=== PATIENT | female | born 1960 | race American Indian/Alaskan Native ===

== ENCOUNTER 2018-03-27 21:15 | Emergency (ER) | payer BC, OTHER ==
--- NOTE | 2018-03-27 21:22 | EDM.PDOC ---
ED HPI GENERAL MEDICAL PROBLEM - General Stated Complaint: DEHYDRATED Time Seen by Provider: 03/27/18 21:17 - History of Present Illness INITIAL COMMENTS - FREE TEXT/NARRATIVE: HISTORY AND PHYSICAL: History of present illness: Patient 57-year-old female presents with concern of poor oral intake and dehydration she states was recently exposed to norovirus. Denies fever chills she had some abdominal cramping denies localized pain denies vaginal discharge or irregular bleeding or urinary symptoms Review of systems: As per history of present illness and below otherwise all systems reviewed and negative. Past medical history: As per history of present illness and as reviewed below otherwise noncontributory. Surgical history: As per history of present illness and as reviewed below otherwise noncontributory. Social history: No reported history of drug or alcohol abuse. Family history: As per history of present illness and as reviewed below otherwise noncontributory. Physical exam: HEENT: Atraumatic, normocephalic, pupils reactive, negative for conjunctival pallor or scleral icterus, mucous membranes dry, throat clear, neck supple, nontender, trachea midline. Lungs: Clear to auscultation, breath sounds equal bilaterally, chest nontender. Heart: S1S2, regular, negative for clicks, rubs, or JVD. Abdomen: Soft, nondistended, no localized tenderness. Negative for masses or hepatosplenomegaly. Negative for costovertebral tenderness. Pelvis: Stable nontender. Genitourinary: Deferred. Rectal: Deferred. Extremities: Atraumatic, negative for cords or calf pain. Neurovascular unremarkable. Neuro: Awake, alert, oriented. Cranial nerves II through XII unremarkable. Cerebellum unremarkable. Motor and sensory unremarkable throughout. Exam nonfocal. Diagnostics: CBC CMP lipase UA Therapeutics: Normal saline 1 L bolus Zofran 4 mg IV Impression: #1 dehydration #2 viral illness Definitive disposition and diagnosis as appropriate pending reevaluation and review of above. - Related Data Allergies Allergy/AdvReac Type Severity Reaction Status Date / Time codeine Allergy Other Verified 08/22/16 07:35 lidocaine Allergy Other Verified 08/22/16 07:35 Sulfa (Sulfonamide Allergy Hives Verified 08/22/16 07:35 Antibiotics) venlafaxine HCl Allergy Other Verified 08/22/16 07:35 [From Effexor] Home Meds: Home Meds Dicyclomine HCl [Bentyl] 10 mg PO ASDIRECTED 04/05/15 [History] Hyoscyamine [Levsin] 0.125 mg PO ASDIRECTED PRN 04/05/15 [History] Ibuprofen 2 tab PO ASDIRECTED PRN 04/05/15 [History] Lisinopril 5 mg PO DAILY 04/05/15 [History] hydrOXYzine Pamoate [Hydroxyzine Pamoate] 25 mg PO PRN 04/07/15 [History] Folic Acid 0.4 mg PO DAILY 02/05/16 [History] Magnesium 250 mg PO DAILY 02/05/16 [History] Potassium Gluconate 90 mg PO DAILY 02/05/16 [History] Ranitidine HCl [Ranitidine] 300 mg PO BID #60 tablet 08/22/16 [Rx] Past Medical History HEENT History: Reports: None Cardiovascular History: Reports: Hypertension Respiratory History: Reports: None Gastrointestinal History: Reports: Inflammatory Bowel Disease, Other (See Below) Other Gastrointestinal History: ventral hernia Genitourinary History: Reports: None JIGMAN History: Reports: None, Other (See Below) Other OB/BYN History: currently on menses Musculoskeletal History: Reports: None Neurological History: Reports: None Psychiatric History: Reports: None Endocrine/Metabolic History: Reports: Other (See Below) Other Endocrine/Metabolic History: hypoglycemia Hematologic History: Reports: None Immunologic History: Reports: None Oncologic (Cancer) History: Reports: None Dermatologic History: Reports: None - Past Surgical History Head Surgeries/Procedures: Reports: None Other GI Surgeries/Procedures: 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 ED EXAM, GENERAL - Physical Exam Exam: See Below (dictation) Course - Vital Signs Last Recorded V/S: Last Vital Signs Temp 36.8 C 03/27/18 21:17 Pulse 86 03/27/18 21:17 Resp 18 03/27/18 21:17 BP 114/87 03/27/18 21:17 Pulse Ox 97 03/27/18 21:17 - Orders/Labs/Meds Labs: Laboratory Tests 03/27/18 03/27/18 Range/Units 21:37 21:37 WBC 7.99 (4.0-11.0) K/uL RBC 5.25 (4.30-5.90) M/uL Hgb 16.8 H (12.0-16.0) g/dL Hct 47.4 H (36.0-46.0) % MCV 90.3 (80.0-98.0) fL MCH 32.0 (27.0-32.0) pg MCHC 35.4 (31.0-37.0) g/dL RDW Std Deviation 44.5 (28.0-62.0) fl RDW Coeff of Marcello 14 (11.0-15.0) % Plt Count 276 (150-400) K/uL MPV 9.30 (7.40-12.00) fL Neut % (Auto) 80.6 H (48.0-80.0) % Lymph % (Auto) 13.0 L (16.0-40.0) % [place] % (Auto) 4.6 (0.0-15.0) % Eos % (Auto) 1.5 (0.0-7.0) % Baso % (Auto) 0.3 (0.0-1.5) % Neut # (Auto) 6.4 H (1.4-5.7) K/uL Lymph # (Auto) 1.0 (0.6-2.4) K/uL [place] # (Auto) 0.4 (0.0-0.8) K/uL Eos # (Auto) 0.1 (0.0-0.7) K/uL Baso # (Auto) 0.0 (0.0-0.1) K/uL Nucleated RBC % 0.0 /100WBC Nucleated RBCs # 0 K/uL Sodium 139 (136-145) mmol/L Potassium 3.3 L (3.5-5.1) mmol/L Chloride 103 (98-107) mmol/L Carbon Dioxide 24.7 (21.0-32.0) mmol/L BUN 9 (7.0-18.0) mg/dL Creatinine 1.0 (0.6-1.0) mg/dL Est Cr Clr Drug Dosing TNP Estimated GFR (MDRD) 57.6 ml/min Glucose 115 H (74-106) mg/dL Calcium 9.5 (8.5-10.1) mg/dL Total Bilirubin 0.3 (0.2-1.0) mg/dL AST 22 (15-37) IU/L ALT 21 (14-63) IU/L Alkaline Phosphatase 64 (46-116) U/L Total Protein 8.0 (6.4-8.2) g/dL Albumin 4.3 (3.4-5.0) g/dL Globulin 3.7 H (2.0-3.5) g/dL Albumin/Globulin Ratio 1.2 L (1.3-2.8) Lipase 110 (73-393) U/L Meds: Medications Discontinued Medications Generic Name Dose Route Start Last Admin Trade Name Freq PRN Reason Stop Dose Admin Sodium Chloride 1,000 mls @ 999 mls/hr 03/27/18 21:23 03/27/18 21:51 Normal Saline IV 03/27/18 22:23 999 mls/hr .Bolus ONE Administration Ondansetron HCl 4 mg 03/27/18 21:23 03/27/18 21:51 Zofran IVPUSH 03/27/18 21:24 4 mg ONETIME ONE Administration Departure - Departure Time of Disposition: 22:36 Disposition: Home, Self-Care 01 Condition: Good Clinical Impression: Dehydration - Discharge Information Additional Instructions: The following information is given to patients seen in the emergency department who are being discharged to home. This information is to outline your options for follow-up care. We provide all patients seen in our emergency department with a follow-up referral. The need for follow-up, as well as the timing and circumstances, are variable depending upon the specifics of your emergency department visit. If you don't have a primary care physician on staff, we will provide you with a referral. We always advise you to contact your personal physician following an emergency department visit to inform them of the circumstance of the visit and for follow-up with them and/or the need for any referrals to a consulting specialist. The emergency department will also refer you to a specialist when appropriate. This referral assures that you have the opportunity for followup care with a specialist. All of these measure are taken in an effort to provide you with optimal care, which includes your followup. Under all circumstances we always encourage you to contact your private physician who remains a resource for coordinating your care. When calling for followup care, please make the office aware that this follow-up is from your recent emergency room visit. If for any reason you are refused follow-up, please contact the [facility] emergency department at and asked to speak to the emergency department charge nurse. Continue current medications push fluids clear liquid as directed avoid dairy 72 hours follow-up private medical doctor in 1-2 days and return as needed as discussed
[2018-03-27] MEDS ORDERED: Sodium Chloride 0.9% 1,000 ML IV ONE (21:23)
[2018-03-27] MEDS ORDERED: Ondansetron 4 MG/2 ML SDV IVPUSH ONE (21:23)
[2018-03-27 22:08] LABS: CHLORIDE,CL 103 mmol/L (98-107); SODIUM,NA 139 mmol/L (136-145)
[2018-03-27 22:36] VITALS: BP 114/87
== END 2018-03-27 22:53 | disposition home or self-care (01) ==
LOC: MW.ED 21:15
DX: E86.0 Dehydration (principal); B34.9 Viral infection, unspecified; I10 Essential (primary) hypertension; Z88.5 Allergy status to narcotic agent; Z88.2 Allergy status to sulfonamides; Z88.8 Allergy status to other drugs, medicaments and biological substances; Z79.899 Other long term (current) drug therapy
CPT/HCPCS: 36415; 80053; 83690; 85025; 96361; 96374; 99284; J2405; J7040

== ENCOUNTER 2018-06-18 14:03 | Emergency (ER) | payer BC, OTHER ==
[2018-06-18] MEDS ORDERED: Sodium Chloride 0.9% 10 ML Syringe FLUSH PRN (14:09)
[2018-06-18] MEDS ORDERED: Sodium Chloride 0.9% 1,000 ML IV ONE (14:09)
[2018-06-18] MEDS ORDERED: Sodium Chloride 0.9% 2.5 ML Syringe FLUSH PRN (14:09)
--- NOTE | 2018-06-18 14:10 | EDM.PDOC ---
ED HPI GENERAL MEDICAL PROBLEM - General Chief Complaint: Chest Pain Stated Complaint: CHEST PAIN Time Seen by Provider: 06/18/18 14:22 Source of Information: Reports: Patient History Limitations: Reports: No Limitations - History of Present Illness INITIAL COMMENTS - FREE TEXT/NARRATIVE: HISTORY AND PHYSICAL: History of present illness: Patient is a 57-year-old female here with complaint of chest pain. She states it started about 1.5 hours ago. She reports the pain is left sided, she had two episodes of really sharp pain that lasted less than a minute. She states she no longer has any pain right now. She notes that the pain radiated to her left shoulder. She denies any diaphoresis or shortness of breath. She reports feeling nausea and having diarrhea which she attributes to her colitis. She denies any vomiting. Past medical history of hypertension and type 2 diabetes. She smokes 1-1.5 ppd x 20+ years. Review of systems: As per history of present illness and below otherwise all systems reviewed and negative. Past medical history: As per history of present illness and as reviewed below otherwise noncontributory. Surgical history: As per history of present illness and as reviewed below otherwise noncontributory. Social history: No reported history of drug or alcohol abuse. Family history: As per history of present illness and as reviewed below otherwise noncontributory. Physical exam: General: patient sitting comfortably in no acute distress HEENT: Atraumatic, normocephalic, pupils reactive, negative for conjunctival pallor or scleral icterus, mucous membranes moist, throat clear, neck supple, nontender, trachea midline. Lungs: Clear to auscultation, breath sounds equal bilaterally, chest nontender. Heart: S1S2, regular, negative for clicks, rubs, or JVD. Abdomen: Soft, nondistended, nontender. Negative for masses or hepatosplenomegaly. Negative for costovertebral tenderness. Pelvis: Stable nontender. Genitourinary: Deferred. Rectal: Deferred. Extremities: Atraumatic, negative for cords or calf pain. Neurovascular unremarkable. Neuro: Awake, alert, oriented. Cranial nerves II through XII unremarkable. Cerebellum unremarkable. Motor and sensory unremarkable throughout. Exam nonfocal. Notes: Discussed with patient my strong recommendations to admit to observation on telemetry and serial troponin. Patient declines admission at this time. Diagnostics: CBC, CMP, Troponin, UA, urine hcg, lipase EKG, CXR Therapeutics: 1L Normal Saline IV Impression: Chest pain Plan: 1. Follow up with primary care provider 2. Return to ED as needed as discussed Definitive disposition and diagnosis as appropriate pending reevaluation and review of above. - Related Data Allergies Allergy/AdvReac Type Severity Reaction Status Date / Time codeine Allergy Other Verified 06/18/18 14:10 lidocaine Allergy Other Verified 06/18/18 14:10 Sulfa (Sulfonamide Allergy Hives Verified 06/18/18 14:10 Antibiotics) venlafaxine HCl Allergy Other Verified 06/18/18 14:10 [From Effexor] Home Meds: Home Meds Dicyclomine HCl [Bentyl] 10 mg PO ASDIRECTED 04/05/15 [History] Hyoscyamine [Levsin] 0.125 mg PO ASDIRECTED PRN 04/05/15 [History] Ibuprofen 2 tab PO ASDIRECTED PRN 04/05/15 [History] Lisinopril 5 mg PO DAILY 04/05/15 [History] hydrOXYzine Pamoate [Hydroxyzine Pamoate] 25 mg PO PRN 04/07/15 [History] Folic Acid 0.4 mg PO DAILY 02/05/16 [History] Magnesium 250 mg PO DAILY 02/05/16 [History] Potassium Gluconate 90 mg PO DAILY 02/05/16 [History] Ranitidine HCl [Ranitidine] 300 mg PO BID #60 tablet 08/22/16 [Rx] Past Medical History HEENT History: Reports: None Cardiovascular History: Reports: Hypertension Respiratory History: Reports: None Gastrointestinal History: Reports: Inflammatory Bowel Disease, Other (See Below) Other Gastrointestinal History: ventral hernia Genitourinary History: Reports: None MATERIALS MANAGEMENT CLERK History: Reports: None, Other (See Below) Other MATERIALS MANAGEMENT CLERK History: currently on menses Musculoskeletal History: Reports: None Neurological History: Reports: None Psychiatric History: Reports: None Endocrine/Metabolic History: Reports: Other (See Below) Other Endocrine/Metabolic History: hypoglycemia Hematologic History: Reports: None Immunologic History: Reports: None Oncologic (Cancer) History: Reports: None Dermatologic History: Reports: None - Infectious Disease History Infectious Disease History: Reports: None - Past Surgical History Head Surgeries/Procedures: Reports: None Other GI Surgeries/Procedures: 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 ED EXAM, GENERAL - Physical Exam Exam: See Below (see dictation) Course - Vital Signs Last Recorded V/S: Last Vital Signs Temp 36.3 C 06/18/18 14:07 Pulse 62 06/18/18 15:03 Resp 18 06/18/18 15:03 BP 139/78 06/18/18 15:03 Pulse Ox 97 06/18/18 15:03 - Orders/Labs/Meds Orders: Active Orders 24 hr Category Date Time Status EKG Documentation Completion [RC] STAT Care 06/18/18 14:09 Active Pulse Oximetry [RC] ASDIRECTED Care 06/18/18 14:09 Active HCG QUALITATIVE,URINE [URCHEM] Stat Lab 06/18/18 14:15 Ordered UA W/MICROSCOPIC [URIN] Stat Lab 06/18/18 14:15 Ordered Sodium Chloride 0.9% [Saline Flush] Med 06/18/18 14:09 Active 10 ml FLUSH ASDIRECTED PRN Sodium Chloride 0.9% [Saline Flush] Med 06/18/18 14:09 Active 2.5 ml FLUSH ASDIRECTED PRN Saline Lock Insert [OM.PC] Stat Oth 06/18/18 14:09 Ordered Medication Orders Sodium Chloride (Saline Flush) 10 ml FLUSH ASDIRECTED PRN PRN Reason: Keep Vein Open Last Admin: 06/18/18 14:26 Dose: 10 ml Sodium Chloride (Saline Flush) 2.5 ml FLUSH ASDIRECTED PRN PRN Reason: Keep Vein Open Last Admin: 06/18/18 14:26 Dose: 2.5 ml Labs: Laboratory Tests 06/18/18 06/18/18 06/18/18 Range/Units 14:00 14:00 14:00 WBC 8.84 (4.0-11.0) K/uL RBC 4.71 (4.30-5.90) M/uL Hgb 14.9 (12.0-16.0) g/dL Hct 42.8 (36.0-46.0) % MCV 90.9 (80.0-98.0) fL MCH 31.6 (27.0-32.0) pg MCHC 34.8 (31.0-37.0) g/dL RDW Std Deviation 45.9 (28.0-62.0) fl RDW Coeff of Marcello 14 (11.0-15.0) % Plt Count 256 (150-400) K/uL MPV 9.30 (7.40-12.00) fL Neut % (Auto) 65.1 (48.0-80.0) % Lymph % (Auto) 27.5 (16.0-40.0) % [place] % (Auto) 6.1 (0.0-15.0) % Eos % (Auto) 1.0 (0.0-7.0) % Baso % (Auto) 0.3 (0.0-1.5) % Neut # (Auto) 5.8 H (1.4-5.7) K/uL Lymph # (Auto) 2.4 (0.6-2.4) K/uL [place] # (Auto) 0.5 (0.0-0.8) K/uL Eos # (Auto) 0.1 (0.0-0.7) K/uL Baso # (Auto) 0.0 (0.0-0.1) K/uL Nucleated RBC % 0.0 /100WBC Nucleated RBCs # 0 K/uL INR 0.92 Sodium 134 L (136-145) mmol/L Potassium 3.8 (3.5-5.1) mmol/L Chloride 99 (98-107) mmol/L Carbon Dioxide 26.1 (21.0-32.0) mmol/L BUN 13 (7.0-18.0) mg/dL Creatinine 0.8 (0.6-1.0) mg/dL Est Cr Clr Drug Dosing 65.73 mL/min Estimated GFR (MDRD) > 60.0 ml/min Glucose 87 (74-106) mg/dL Calcium 9.1 (8.5-10.1) mg/dL Total Bilirubin 0.2 (0.2-1.0) mg/dL AST 27 (15-37) IU/L ALT 28 (14-63) IU/L Alkaline Phosphatase 67 (46-116) U/L Troponin I < 0.050 (0.000-0.056) ng/mL Total Protein 7.3 (6.4-8.2) g/dL Albumin 3.8 (3.4-5.0) g/dL Globulin 3.5 (2.0-3.5) g/dL Albumin/Globulin Ratio 1.1 L (1.3-2.8) Lipase 178 (73-393) U/L Urine Color Urine Appearance Urine pH (5.0-8.0) Ur Specific [place] (1.001-1.035) Urine Protein (NEGATIVE) mg/dL Urine Glucose (UA) (NEGATIVE) mg/dL Urine Ketones (NEGATIVE) mg/dL Urine Occult Blood (NEGATIVE) Urine Nitrite (NEGATIVE) Urine Bilirubin (NEGATIVE) Urine Urobilinogen (<2.0) EU/dL Ur Leukocyte Esterase (NEGATIVE) Urine RBC (0-2/HPF) Urine WBC (0-5/HPF) Ur Epithelial Cells (NONE-FEW) Urine Bacteria (NEGATIVE) Urine HCG, Qual (NEGATIVE) 06/18/18 06/18/18 Range/Units 14:15 14:15 WBC (4.0-11.0) K/uL RBC (4.30-5.90) M/uL Hgb (12.0-16.0) g/dL Hct (36.0-46.0) % MCV (80.0-98.0) fL MCH (27.0-32.0) pg MCHC (31.0-37.0) g/dL RDW Std Deviation (28.0-62.0) fl RDW Coeff of Marcello (11.0-15.0) % Plt Count (150-400) K/uL MPV (7.40-12.00) fL Neut % (Auto) (48.0-80.0) % Lymph % (Auto) (16.0-40.0) % [place] % (Auto) (0.0-15.0) % Eos % (Auto) (0.0-7.0) % Baso % (Auto) (0.0-1.5) % Neut # (Auto) (1.4-5.7) K/uL Lymph # (Auto) (0.6-2.4) K/uL [place] # (Auto) (0.0-0.8) K/uL Eos # (Auto) (0.0-0.7) K/uL Baso # (Auto) (0.0-0.1) K/uL Nucleated RBC % /100WBC Nucleated RBCs # K/uL INR Sodium (136-145) mmol/L Potassium (3.5-5.1) mmol/L Chloride (98-107) mmol/L Carbon Dioxide (21.0-32.0) mmol/L BUN (7.0-18.0) mg/dL Creatinine (0.6-1.0) mg/dL Est Cr Clr Drug Dosing mL/min Estimated GFR (MDRD) ml/min Glucose (74-106) mg/dL Calcium (8.5-10.1) mg/dL Total Bilirubin (0.2-1.0) mg/dL AST (15-37) IU/L ALT (14-63) IU/L Alkaline Phosphatase (46-116) U/L Troponin I (0.000-0.056) ng/mL Total Protein (6.4-8.2) g/dL Albumin (3.4-5.0) g/dL Globulin (2.0-3.5) g/dL Albumin/Globulin Ratio (1.3-2.8) Lipase (73-393) U/L Urine Color YELLOW Urine Appearance CLEAR Urine pH 6.0 (5.0-8.0) Ur Specific [place] <= 1.005 (1.001-1.035) Urine Protein NEGATIVE (NEGATIVE) mg/dL Urine Glucose (UA) NEGATIVE (NEGATIVE) mg/dL Urine Ketones NEGATIVE (NEGATIVE) mg/dL Urine Occult Blood TRACE-INTACT (NEGATIVE) Urine Nitrite NEGATIVE (NEGATIVE) Urine Bilirubin NEGATIVE (NEGATIVE) Urine Urobilinogen 0.2 (<2.0) EU/dL Ur Leukocyte Esterase NEGATIVE (NEGATIVE) Urine RBC 0-1 (0-2/HPF) Urine WBC 0-1 (0-5/HPF) Ur Epithelial Cells RARE (NONE-FEW) Urine Bacteria RARE (NEGATIVE) Urine HCG, Qual NEGATIVE (NEGATIVE) Meds: Medications Generic Name Dose Route Start Last Admin Trade Name Freq PRN Reason Stop Dose Admin Sodium Chloride 10 ml 06/18/18 14:09 06/18/18 14:26 Saline Flush FLUSH 10 ml ASDIRECTED PRN Administration Keep Vein Open Sodium Chloride 2.5 ml 06/18/18 14:09 06/18/18 14:26 Saline Flush FLUSH 2.5 ml ASDIRECTED PRN Administration Keep Vein Open Discontinued Medications Generic Name Dose Route Start Last Admin Trade Name Kush PRN Reason Stop Dose Admin Sodium Chloride 1,000 mls @ 999 mls/hr 06/18/18 14:09 06/18/18 14:26 Normal Saline IV 06/18/18 15:09 999 mls/hr BOLUS ONE Administration Departure - Departure Time of Disposition: 15:26 Disposition: Home, Self-Care 01 Condition: Good Clinical Impression: Chest pain Forms: ED Department Discharge Additional Instructions: The following information is given to patients seen in the emergency department who are being discharged to home. This information is to outline your options for follow-up care. We provide all patients seen in our emergency department with a follow-up referral. The need for follow-up, as well as the timing and circumstances, are variable depending upon the specifics of your emergency department visit. If you don't have a primary care physician on staff, we will provide you with a referral. We always advise you to contact your personal physician following an emergency department visit to inform them of the circumstance of the visit and for follow-up with them and/or the need for any referrals to a consulting specialist. The emergency department will also refer you to a specialist when appropriate. This referral assures that you have the opportunity for follow-up care with a specialist. All of these measure are taken in an effort to provide you with optimal care, which includes your follow-up. Under all circumstances we always encourage you to contact your private physician who remains a resource for coordinating your care. When calling for follow-up care, please make the office aware that this follow-up is from your recent emergency room visit. If for any reason you are refused follow-up, please contact the [facility] Emergency Department at and asked to speak to the emergency department charge nurse. [facility] [address] [place] [id number] [address] 1. Follow up with primary care provider 2. Return to ED as needed as discussed - My Orders Last 24 Hours: My Active Orders 06/18/18 14:09 EKG Documentation Completion [RC] STAT Pulse Oximetry [RC] ASDIRECTED Sodium Chloride 0.9% [Saline Flush] 10 ml FLUSH ASDIRECTED PRN Sodium Chloride 0.9% [Saline Flush] 2.5 ml FLUSH ASDIRECTED PRN Saline Lock Insert [OM.PC] Stat 06/18/18 14:15 HCG QUALITATIVE,URINE [URCHEM] Stat UA W/MICROSCOPIC [URIN] Stat - Assessment/Plan Last 24 Hours: My Active Orders 06/18/18 14:09 EKG Documentation Completion [RC] STAT Pulse Oximetry [RC] ASDIRECTED Sodium Chloride 0.9% [Saline Flush] 10 ml FLUSH ASDIRECTED PRN Sodium Chloride 0.9% [Saline Flush] 2.5 ml FLUSH ASDIRECTED PRN Saline Lock Insert [OM.PC] Stat 06/18/18 14:15 HCG QUALITATIVE,URINE [URCHEM] Stat UA W/MICROSCOPIC [URIN] Stat
[2018-06-18 14:41] LABS: CHLORIDE,CL 99 mmol/L (98-107); SODIUM,NA 134 mmol/L (136-145)
--- NOTE | 2018-06-18 14:57 | CR ---
EXAMINATION: Portable chest radiograph. HISTORY: Chest pain. FINDINGS: The trachea is midline. The cardiomediastinal silhouette is within normal limits. No pulmonary infilt rates, effusions or pneumothorax. Osseous structures appear unremarkable. IMPRESSION: No acute cardiopulmonary process.
[2018-06-18 17:25] VITALS: BP 138/83
== END 2018-06-18 15:39 | disposition home or self-care (01) ==
LOC: MW.ED 14:03
DX: R07.9 Chest pain, unspecified (principal)
CPT/HCPCS: 36415; 71045; 80053; 81001; 81025; 83690; 84484; 85025; 85610; 93005; 96360; 99285; J7040; 99284

== ENCOUNTER 2019-07-09 09:26 | Emergency (ER) | payer OTHER ==
--- NOTE | 2019-07-09 09:40 | EDM.PDOC ---
ED HPI GENERAL MEDICAL PROBLEM - General Chief Complaint: Upper Extremity Injury/Pain Stated Complaint: INJURED LT ARM Time Seen by Provider: 07/09/19 09:38 Source of Information: Reports: Patient History Limitations: Reports: No Limitations - History of Present Illness INITIAL COMMENTS - FREE TEXT/NARRATIVE: HISTORY AND PHYSICAL: History of present illness: Review of systems: As per history of present illness and below otherwise all systems reviewed and negative. Past medical history: As per history of present illness and as reviewed below otherwise noncontributory. Surgical history: As per history of present illness and as reviewed below otherwise noncontributory. Social history: See social history for further information Family history: As per history of present illness and as reviewed below otherwise noncontributory. Physical exam: General: HEENT: Atraumatic, normocephalic, pupils equal and reactive bilaterally, negative for conjunctival pallor or scleral icterus, mucous membranes moist, TMs normal bilaterally, throat clear, neck supple, nontender, trachea midline. No drooling or trismus noted. No meningeal signs. No hot potato voice noted. Lungs: Clear to auscultation, breath sounds equal bilaterally, chest nontender. Heart: S1S2, regular rate and rhythm without overt murmur Abdomen: Soft, nondistended, nontender. Negative for masses or hepatosplenomegaly. Negative for costovertebral tenderness. Pelvis: Stable nontender. Genitourinary: Deferred. Rectal: Deferred. Skin: Intact, warm, dry. No lesions or rashes noted. Extremities: Atraumatic, moves all extremities per self without difficulty or deficits, negative for cords or calf pain. Neurovascular unremarkable. Neuro: Awake, alert, oriented. Cranial nerves II through XII unremarkable. Cerebellum unremarkable. Motor and sensory unremarkable throughout. Exam nonfocal. Notes: Supportive care measures were reviewed and discussed. Voices understanding and is agreeable to plan of care. Denies any further questions or concerns at this time. Diagnostics: Therapeutics: Prescription: Impression: Plan: Definitive disposition and diagnosis as appropriate pending reevaluation and review of above. - Related Data Allergies Allergy/AdvReac Type Severity Reaction Status Date / Time codeine Allergy Other Verified 09/28/18 08:55 lidocaine Allergy Other Verified 09/28/18 08:55 Sulfa (Sulfonamide Allergy Hives Verified 09/28/18 08:55 Antibiotics) venlafaxine HCl Allergy Other Verified 09/28/18 08:55 [From Effexor] Home Meds: Home Meds Dicyclomine HCl [Bentyl] 10 mg PO ASDIRECTED 04/05/15 [History] Hyoscyamine [Levsin] 0.125 mg PO ASDIRECTED PRN 04/05/15 [History] Ibuprofen 2 tab PO ASDIRECTED PRN 04/05/15 [History] Lisinopril 5 mg PO DAILY 04/05/15 [History] Magnesium 250 mg PO DAILY 02/05/16 [History] Potassium Gluconate 90 mg PO DAILY 02/05/16 [History] Aspirin [Halfprin] 81 mg PO DAILY #30 tab.ec 09/28/18 [Rx] Nitroglycerin 0.4 mg SL Q5M PRN #30 tab.subl 09/28/18 [Rx] Past Medical History HEENT History: Reports: None Cardiovascular History: Reports: Hypertension Respiratory History: Reports: None. Denies: Asthma, COPD Gastrointestinal History: Reports: Other (See Below) Other Gastrointestinal History: ventral hernia. chronic diarrhea Genitourinary History: Reports: None. Denies: Chronic Renal Insuffiency SEASONAL CLERK History: Reports: None Other SEASONAL CLERK History: currently on menses Musculoskeletal History: Reports: Other (See Below) Other Musculoskeletal History: left knee issues, maniscus tears, needs surgery Neurological History: Reports: None. Denies: CVA, MS, Parkinson's Psychiatric History: Reports: None Endocrine/Metabolic History: Reports: Other (See Below). Denies: Diabetes, Type I, Diabetes, Type II Other Endocrine/Metabolic History: hypoglycemia Hematologic History: Reports: None. Denies: Anticoagulation Therapy Immunologic History: Reports: None. 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
--- NOTE | 2019-07-09 09:48 | EDM.PDOC ---
ED HPI GENERAL MEDICAL PROBLEM - General Chief Complaint: Upper Extremity Injury/Pain Stated Complaint: INJURED LT ARM Time Seen by Provider: 07/09/19 09:38 - History of Present Illness INITIAL COMMENTS - FREE TEXT/NARRATIVE: HISTORY AND PHYSICAL: History of present illness: Patient 58 show female presents with a concern of medical screening exam for a left forearm injury that occurred when it was hit by a door while at work she sustained a minor abrasion contusion and is here at the request of her employer. There is no other trauma or concern Review of systems: As per history of present illness and below otherwise all systems reviewed and negative. Past medical history: As per history of present illness and as reviewed below otherwise noncontributory. Surgical history: As per history of present illness and as reviewed below otherwise noncontributory. Social history: No reported history of drug or alcohol abuse. Family history: As per history of present illness and as reviewed below otherwise noncontributory. Physical exam: HEENT: Atraumatic, normocephalic, pupils reactive, negative for conjunctival pallor or scleral icterus, mucous membranes moist, throat clear, neck supple, nontender, trachea midline. Lungs: Clear to auscultation, breath sounds equal bilaterally, chest nontender. Heart: S1S2, regular, negative for clicks, rubs, or JVD. Abdomen: Soft, nondistended, nontender. Negative for masses or hepatosplenomegaly. Negative for costovertebral tenderness. Pelvis: Stable nontender. Genitourinary: Deferred. Rectal: Deferred. Extremities: Left forearm has a small abrasion into minor areas of ecchymosis noted no gross deformity no bony tenderness EMS and neurovascular exam is unremarkable. Neuro: Awake, alert, oriented. Cranial nerves II through XII unremarkable. Cerebellum unremarkable. Motor and sensory unremarkable throughout. Exam nonfocal. Diagnostics: X-ray left forearm Therapeutics: None Impression: #1 acute left forearm injury ( blunt force trauma) Definitive disposition and diagnosis as appropriate pending reevaluation and review of above. - Related Data Allergies Allergy/AdvReac Type Severity Reaction Status Date / Time codeine Allergy Other Verified 09/28/18 08:55 lidocaine Allergy Other Verified 09/28/18 08:55 Sulfa (Sulfonamide Allergy Hives Verified 09/28/18 08:55 Antibiotics) venlafaxine HCl Allergy Other Verified 09/28/18 08:55 [From Effexor] Home Meds: Home Meds Dicyclomine HCl [Bentyl] 10 mg PO ASDIRECTED 04/05/15 [History] Hyoscyamine [Levsin] 0.125 mg PO ASDIRECTED PRN 04/05/15 [History] Ibuprofen 2 tab PO ASDIRECTED PRN 04/05/15 [History] Lisinopril 5 mg PO DAILY 04/05/15 [History] Magnesium 250 mg PO DAILY 02/05/16 [History] Potassium Gluconate 90 mg PO DAILY 02/05/16 [History] Aspirin [Halfprin] 81 mg PO DAILY #30 tab.ec 09/28/18 [Rx] Nitroglycerin 0.4 mg SL Q5M PRN #30 tab.subl 09/28/18 [Rx] Past Medical History HEENT History: Reports: None Cardiovascular History: Reports: Hypertension Respiratory History: Reports: None. Denies: Asthma, COPD Gastrointestinal History: Reports: Other (See Below) Other Gastrointestinal History: ventral hernia. chronic diarrhea Genitourinary History: Reports: None. Denies: Chronic Renal Insuffiency CHILDREN'S TUTOR History: Reports: None Other CHILDREN'S TUTOR History: currently on menses Musculoskeletal History: Reports: Other (See Below) Other Musculoskeletal History: left knee issues, maniscus tears, needs surgery Neurological History: Reports: None. Denies: CVA, MS, Parkinson's Psychiatric History: Reports: None Endocrine/Metabolic History: Reports: Other (See Below). Denies: Diabetes, Type I, Diabetes, Type II Other Endocrine/Metabolic History: hypoglycemia Hematologic History: Reports: None. Denies: Anticoagulation Therapy Immunologic History: Reports: None. 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 ED EXAM, GENERAL - Physical Exam Exam: See Below (See dictation) Course - Orders/Labs/Meds Orders: Active Orders 24 hr Category Date Time Status Forearm 2V Lt [CR] Stat Exams 07/09/19 09:43 Ordered Departure - Departure Time of Disposition: 09:47 Disposition: Home, Self-Care 01 Condition: Good Clinical Impression: Forearm injury - Discharge Information Referrals: PCP,Unknown [Primary Care Provider] - Forms: ED Department Discharge Additional Instructions: The following information is given to patients seen in the emergency department who are being discharged to home. This information is to outline your options for follow-up care. We provide all patients seen in our emergency department with a follow-up referral. The need for follow-up, as well as the timing and circumstances, are variable depending upon the specifics of your emergency department visit. If you don't have a primary care physician on staff, we will provide you with a referral. We always advise you to contact your personal physician following an emergency department visit to inform them of the circumstance of the visit and for follow-up with them and/or the need for any referrals to a consulting specialist. The emergency department will also refer you to a specialist when appropriate. This referral assures that you have the opportunity for followup care with a specialist. All of these measure are taken in an effort to provide you with optimal care, which includes your followup. Under all circumstances we always encourage you to contact your private physician who remains a resource for coordinating your care. When calling for followup care, please make the office aware that this follow-up is from your recent emergency room visit. If for any reason you are refused follow-up, please contact the [facility] emergency department at and asked to speak to the emergency department charge nurse. Sling as directed Motrin/Tylenol as directed follow-up occupational medicine and /or primary care as needed as discussed and return as needed as discussed - My Orders Last 24 Hours: My Active Orders 07/09/19 09:43 Forearm 2V Lt [CR] Stat - Assessment/Plan Last 24 Hours: My Active Orders 07/09/19 09:43 Forearm 2V Lt [CR] Stat
[2019-07-09 10:30] VITALS: BP 155/90
--- NOTE | 2019-07-09 11:08 | CR ---
INDICATION: Pain COMPARISON: none TECHNIQUE: Two-view left forearm FINDINGS: The wrist and elbow are anatomically aligned. There is no evidence of fracture, erosion or intrinsic bone lesion. The soft tissues appear normal. IMPRESSION: Negative left forearm. Dictated by Samuel Martines MD @ Jul 09 2019 10:58AM Signed by Dr. Samuel Martines @ Jul 09 2019 11:06AM
== END 2019-07-09 10:31 | disposition home or self-care (01) ==
LOC: MW.ED 09:26
DX: S50.12XA Contusion of left forearm, initial encounter (principal); I10 Essential (primary) hypertension; Z88.5 Allergy status to narcotic agent; Z88.2 Allergy status to sulfonamides; Z88.8 Allergy status to other drugs, medicaments and biological substances; Z79.82 Long term (current) use of aspirin; Z79.899 Other long term (current) drug therapy; W22.8XXA Striking against or struck by other objects, initial encounter; Y99.0 Civilian activity done for income or pay
CPT/HCPCS: 73090-26-LT; 73090-LT; 99282; 99283-25

== ENCOUNTER 2019-11-07 04:17 | Emergency (ER) | payer BC, OTHER ==
[2019-11-07] MEDS ORDERED: HYDROmorphone 1 MG/ML Syringe IVPUSH ONE (04:29)
[2019-11-07] MEDS ORDERED: Ondansetron 4 MG/2 ML SDV IVPUSH ONE (04:30)
[2019-11-07] MEDS ORDERED: Sodium Chloride 0.9% 1,000 ML IV ONE (04:32)
--- NOTE | 2019-11-07 04:58 | EDM.PDOC ---
ED HPI GENERAL MEDICAL PROBLEM - General Chief Complaint: Abdominal Pain Stated Complaint: HERNIA PAIN Time Seen by Provider: 11/07/19 04:24 Source of Information: Reports: Patient History Limitations: Reports: No Limitations - History of Present Illness INITIAL COMMENTS - FREE TEXT/NARRATIVE: 58-year-old female presents to the emergency room with a chief complaint of left -sided abdominal hernia pain. Patient states she has been to 2 clinics and is waiting for surgery to take care of it. Patient states she is unable to eat and has severe pain patient states she has had a hernia for 5 years and is giving her problems now. Patient states she cannot reduce her hernia and she is usually able to reduce it. Onset: Today Duration: Day(s):, Getting Worse Location: Reports: Abdomen Severity: Severe Improves with: Reports: None Worsens with: Reports: None Associated Symptoms: Reports: No Other Symptoms, Loss of Appetite abdominal Pain Score (Numeric/FACES): 10 - Related Data Allergies Allergy/AdvReac Type Severity Reaction Status Date / Time codeine Allergy Other Verified 11/07/19 04:29 lidocaine Allergy Other Verified 11/07/19 04:29 Sulfa (Sulfonamide Allergy Hives Verified 11/07/19 04:29 Antibiotics) venlafaxine HCl Allergy Other Verified 11/07/19 04:29 [From Effexor] Home Meds: Home Meds Hyoscyamine [Levsin] 0.125 mg PO ASDIRECTED PRN 04/05/15 [History] Ibuprofen 2 tab PO ASDIRECTED PRN 04/05/15 [History] Lisinopril 5 mg PO DAILY 04/05/15 [History] Potassium Gluconate 50 mg PO DAILY 02/05/16 [History] Nitroglycerin 0.4 mg SL Q5M PRN #30 tab.subl 09/28/18 [Rx] Past Medical History HEENT History: Reports: None Cardiovascular History: Reports: Hypertension Respiratory History: Reports: None Gastrointestinal History: Reports: Other (See Below) Other Gastrointestinal History: ventral hernia. chronic diarrhea Genitourinary History: Reports: None LOAN ORIGINATOR History: Reports: None Other LOAN ORIGINATOR History: currently on menses Musculoskeletal History: Reports: Other (See Below) Other Musculoskeletal History: left knee issues, maniscus tears, needs surgery Neurological History: Reports: None Psychiatric History: Reports: None Endocrine/Metabolic History: Reports: Other (See Below) Other Endocrine/Metabolic History: hypoglycemia Hematologic History: Reports: None Immunologic History: Reports: None Oncologic (Cancer) History: Reports: None Dermatologic History: Reports: None - Infectious Disease History Infectious Disease History: Reports: Chicken Pox, Measles - Past Surgical History Head Surgeries/Procedures: Reports: None Other GI Surgeries/Procedures: 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 Constitutional: Reports: No Symptoms HEENT: Reports: No Symptoms Respiratory: Reports: No Symptoms Cardiovascular: Reports: No Symptoms Endocrine: Reports: No Symptoms GI/Abdominal: Reports: Abdominal Pain, Decreased Appetite, Nausea : Reports: No Symptoms Musculoskeletal: Reports: No Symptoms Skin: Reports: No Symptoms Neurological: Reports: No Symptoms Psychiatric: Reports: No Symptoms Hematologic/Lymphatic: Reports: No Symptoms Immunologic: Reports: No Symptoms ED EXAM, GI/ABD - Physical Exam Exam: See Below Exam Limited By: No Limitations General Appearance: Alert, WD/WN, Severe Distress Eyes: Bilateral: Normal Appearance, EOMI Ears: Normal External Exam, Normal Canal, Hearing Grossly Normal, Normal TMs Nose: Normal Inspection Throat/Mouth: Normal Inspection, Normal Lips. No: Normal Teeth Head: Atraumatic, Normocephalic Neck: Normal Inspection, Supple, Non-Tender Cardiovascular: Normal Peripheral Pulses, Regular Rate, Rhythm, No Edema GI/Abdominal Exam: Normal Bowel Sounds, Guarding, Tender, Hernia, Other (Female) Exam: Deferred Back Exam: Normal Inspection Extremities: Normal Inspection Neurological: Alert, CN II-XII Intact Skin Exam: Warm, Intact, Normal Color Lymphatic: No Adenopathy Course - Vital Signs Text/Narrative:: -58 year-old lady presented to the emergency room with possible incarcerated versus strangulated hernia. When patient came back from CT scan patient is more or less pain-free with 2-3 over 10 pain. Attempted to reduce the hernia found that the hernia is reduced in size and is nontender at this point. I discussed the case with Dr. Ward's. Will evaluate the patient for possible observation. Patient is has received 1 g of Ancef for her UTI. And is currently in control of her pain in the care out to the oncoming ER physician . Last Recorded V/S: Last Vital Signs Temp 97.8 F 11/07/19 05:44 Pulse 78 11/07/19 06:16 Resp 16 11/07/19 06:16 BP 101/58 L 11/07/19 06:16 Pulse Ox 99 11/07/19 06:16 - Orders/Labs/Meds Labs: Laboratory Tests 11/07/19 11/07/19 11/07/19 Range/Units 04:36 04:36 04:36 WBC 8.71 (4.0-11.0) K/uL RBC 4.71 (4.30-5.90) M/uL Hgb 14.9 (12.0-16.0) g/dL Hct 43.1 (36.0-46.0) % MCV 91.5 (80.0-98.0) fL MCH 31.6 (27.0-32.0) pg MCHC 34.6 (31.0-37.0) g/dL RDW Std Deviation 45.5 (28.0-62.0) fl RDW Coeff of Marcello 14 (11.0-15.0) % Plt Count 274 (150-400) K/uL MPV 9.70 (7.40-12.00) fL Neut % (Auto) 71.4 (48.0-80.0) % Lymph % (Auto) 20.8 (16.0-40.0) % [place] % (Auto) 5.9 (0.0-15.0) % Eos % (Auto) 1.7 (0.0-7.0) % Baso % (Auto) 0.2 (0.0-1.5) % Neut # (Auto) 6.2 H (1.4-5.7) K/uL Lymph # (Auto) 1.8 (0.6-2.4) K/uL [place] # (Auto) 0.5 (0.0-0.8) K/uL Eos # (Auto) 0.2 (0.0-0.7) K/uL Baso # (Auto) 0.0 (0.0-0.1) K/uL Nucleated RBC % 0.0 /100WBC Nucleated RBCs # 0 K/uL Lactate (0.20-2.00) mmol/L Sodium 138 (136-145) mmol/L Potassium 3.4 L (3.5-5.1) mmol/L Chloride 102 (98-107) mmol/L Carbon Dioxide 27.1 (21.0-32.0) mmol/L BUN 8 (7.0-18.0) mg/dL Creatinine 0.8 (0.6-1.0) mg/dL Est Cr Clr Drug Dosing 64.95 mL/min Estimated GFR (MDRD) > 60.0 ml/min Glucose 100 (74-106) mg/dL Calcium 9.0 (8.5-10.1) mg/dL Total Bilirubin 0.2 (0.2-1.0) mg/dL AST 25 (15-37) IU/L ALT 27 (14-63) IU/L Alkaline Phosphatase 65 (46-116) U/L Total Protein 7.1 (6.4-8.2) g/dL Albumin 3.7 (3.4-5.0) g/dL Globulin 3.4 (2.6-4.0) g/dL Albumin/Globulin Ratio 1.1 (0.9-1.6) Lipase 171 (73-393) U/L Urine Color YELLOW Urine Appearance CLEAR Urine pH 7.0 (5.0-8.0) Ur Specific [place] <= 1.005 (1.001-1.035) Urine Protein NEGATIVE (NEGATIVE) mg/dL Urine Glucose (UA) NEGATIVE (NEGATIVE) mg/dL Urine Ketones NEGATIVE (NEGATIVE) mg/dL Urine Occult Blood TRACE-INTACT H (NEGATIVE) Urine Nitrite POSITIVE H (NEGATIVE) Urine Bilirubin NEGATIVE (NEGATIVE) Urine Urobilinogen 0.2 (<2.0) EU/dL Ur Leukocyte Esterase MODERATE H (NEGATIVE) Urine RBC 2-3 (0-2/HPF) Urine WBC 8-10 (0-5/HPF) Ur Epithelial Cells OCCASIONAL (NONE-FEW) Urine Bacteria 1+ H (NEGATIVE) 11/07/19 Range/Units 04:36 WBC (4.0-11.0) K/uL RBC (4.30-5.90) M/uL Hgb (12.0-16.0) g/dL Hct (36.0-46.0) % MCV (80.0-98.0) fL MCH (27.0-32.0) pg MCHC (31.0-37.0) g/dL RDW Std Deviation (28.0-62.0) fl RDW Coeff of Marcello (11.0-15.0) % Plt Count (150-400) K/uL MPV (7.40-12.00) fL Neut % (Auto) (48.0-80.0) % Lymph % (Auto) (16.0-40.0) % [place] % (Auto) (0.0-15.0) % Eos % (Auto) (0.0-7.0) % Baso % (Auto) (0.0-1.5) % Neut # (Auto) (1.4-5.7) K/uL Lymph # (Auto) (0.6-2.4) K/uL [place] # (Auto) (0.0-0.8) K/uL Eos # (Auto) (0.0-0.7) K/uL Baso # (Auto) (0.0-0.1) K/uL Nucleated RBC % /100WBC Nucleated RBCs # K/uL Lactate 1.0 (0.20-2.00) mmol/L Sodium (136-145) mmol/L Potassium (3.5-5.1) mmol/L Chloride (98-107) mmol/L Carbon Dioxide (21.0-32.0) mmol/L BUN (7.0-18.0) mg/dL Creatinine (0.6-1.0) mg/dL Est Cr Clr Drug Dosing mL/min Estimated GFR (MDRD) ml/min Glucose (74-106) mg/dL Calcium (8.5-10.1) mg/dL Total Bilirubin (0.2-1.0) mg/dL AST (15-37) IU/L ALT (14-63) IU/L Alkaline Phosphatase (46-116) U/L Total Protein (6.4-8.2) g/dL Albumin (3.4-5.0) g/dL Globulin (2.6-4.0) g/dL Albumin/Globulin Ratio (0.9-1.6) Lipase (73-393) U/L Urine Color Urine Appearance Urine pH (5.0-8.0) Ur Specific [place] (1.001-1.035) Urine Protein (NEGATIVE) mg/dL Urine Glucose (UA) (NEGATIVE) mg/dL Urine Ketones (NEGATIVE) mg/dL Urine Occult Blood (NEGATIVE) Urine Nitrite (NEGATIVE) Urine Bilirubin (NEGATIVE) Urine Urobilinogen (<2.0) EU/dL Ur Leukocyte Esterase (NEGATIVE) Urine RBC (0-2/HPF) Urine WBC (0-5/HPF) Ur Epithelial Cells (NONE-FEW) Urine Bacteria (NEGATIVE) Meds: Medications Discontinued Medications Generic Name Dose Route Start Last Admin Trade Name Freq PRN Reason Stop Dose Admin Hydromorphone HCl 1 mg 11/07/19 04:29 11/07/19 04:41 Dilaudid IVPUSH 11/07/19 04:30 1 mg ONETIME ONE Administration Sodium Chloride 1,000 mls @ 1,000 mls/hr 11/07/19 04:32 11/07/19 04:38 Normal Saline IV 11/07/19 05:31 1,000 mls/hr .Bolus ONE Administration Cefazolin Sodium/Dextrose 1 gm 50 mls @ 100 mls/hr 11/07/19 05:19 11/07/19 05 :48 / Premix IV 11/07/19 05:48 100 mls/hr ONETIME ONE Administration Iopamidol 100 ml 11/07/19 05:31 11/07/19 05:32 Isovue Multipack-370 (76%) IVPUSH 11/07/19 05:32 100 ml ONETIME ONE Administration Ondansetron HCl 4 mg 11/07/19 04:30 11/07/19 04:41 Zofran IVPUSH 11/07/19 04:31 4 mg ONETIME ONE Administration Departure - Departure Time of Disposition: 07:03 Disposition: Admitted As Inpatient 68 Condition: Fair Clinical Impression: Incarcerated hernia of abdominal cavity - Discharge Information [facility] - Sepsis Event Note - Evaluation Sepsis Screening Result: No Definite Risk - Focused Exam Date Exam was Performed: 11/11/19 Time Exam was Performed: 01:45
[2019-11-07 05:04] LABS: BLOOD UREA NITROGEN,BUN 8 mg/dL (7.0-18.0); CARBON DIOXIDE,CO2 27.1 mmol/L (21.0-32.0); CHLORIDE,CL 102 mmol/L (98-107); GLUCOSE RANDOM 100 mg/dL (74-106); LIPASE 171 U/L (73-393); POTASSIUM,K 3.4 mmol/L (3.5-5.1); SODIUM,NA 138 mmol/L (136-145)
[2019-11-07] MEDS ORDERED: ceFAZolin 1 GM in Premix Bag 1 BAG IV ONE (05:19)
[2019-11-07] MEDS ORDERED: Iopamidol 755 MG/ML 200 ML Multipack Bottle IVPUSH ONE (05:31)
[2019-11-07 06:17] VITALS: BP 101/58; PULSE 78
--- NOTE | 2019-11-07 06:18 | CT ---
INDICATION: Abdominal pain. TECHNIQUE: CT scan of the abdomen and pelvis with 100 cc of Isovue-370 given intravenously. FINDINGS: The lung bases show mild dependent atelectasis. No focal abnormalities identified in the visualized portions of the liver, spleen, pancreas, adrenal glands, and kidneys. No hydronephrosis. No obstructing uroliths. Midline epigastric anterior abdominal wall hernia which contains a loop of transverse colon with surrounding edema. The remainder of the GI tract is incompletely distended but shows no gross abnormalities. The stomach and GE junction are not well assessed. No retroperitoneal, pelvic sidewall, or mesenteric adenopathy. Atherosclerotic vascular calcifications. IMPRESSION: 1. Midline epigastric anterior abdominal wall hernia which contains a loop transverse colon with surrounding edema which may indicate strangulation/incarceration of the herniated loop of bowel. Recommend general surgery consultation. Dictated by Faizan Alvarado MD @ 11/07/2019 6:18:02 AM Dictated by: Faizan Alvarado MD @ 11/07/2019 06:18:12 (Electronically Signed)
--- NOTE | 2019-11-07 10:37 | PCM.CONS ---
H&P History of Present Illness - General Date of Service: 11/07/19 Source of Information: Patient History Limitations: Reports: No Limitations - History of Present Illness Initial Comments - Free Text/Narative: Patient is a 58 year old female who presents with epigastric pain. She states that she has a hernia in the area, but had not scheduled an appointment to be seen by a surgeon. She developed intermittent pain in the area last evening but then early this morning the pain became severe. She presented to the ER. She denies nausea, vomiting, or fevers but felt like she had chills. Her vitals were stable other than being hypertensive. The ER doctor tried to reduce a large epigastric bulge but could not. He sent the patient for CT scan. This showed a midline epigastric anterior abdominal wall hernia containing a loop of transverse colon with surrounding edema which may indicate regulation or incarceration of the herniated loop of bowel. The patient's lactate was normal. The remainder of her labs were normal. She is given Dilaudid with improvement in the pain. abdominal Pain Score (Numeric/FACES): 10 - Related Data Allergies/Adverse Reactions: Allergies Allergy/AdvReac Type Severity Reaction Status Date / Time codeine Allergy Other Verified 11/07/19 04:29 lidocaine Allergy Other Verified 11/07/19 04:29 Sulfa (Sulfonamide Allergy Hives Verified 11/07/19 04:29 Antibiotics) venlafaxine HCl Allergy Other Verified 11/07/19 04:29 [From Effexor] Home Medications: Home Meds Hyoscyamine [Levsin] 0.125 mg PO ASDIRECTED PRN 04/05/15 [History] Ibuprofen 2 tab PO ASDIRECTED PRN 04/05/15 [History] Lisinopril 5 mg PO DAILY 04/05/15 [History] Potassium Gluconate 50 mg PO DAILY 02/05/16 [History] Nitroglycerin 0.4 mg SL Q5M PRN #30 tab.subl 09/28/18 [Rx] Past Medical History HEENT History: Reports: None Cardiovascular History: Reports: Hypertension Respiratory History: Reports: None Gastrointestinal History: Reports: Other (See Below) Other Gastrointestinal History: ventral hernia. 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 Other OB/BYN History: currently on menses Musculoskeletal History: Reports: Other (See Below) Other Musculoskeletal History: left knee issues, maniscus tears, needs surgery Neurological History: Reports: None Psychiatric History: Reports: None Endocrine/Metabolic History: Reports: Other (See Below) Other Endocrine/Metabolic History: hypoglycemia Hematologic History: Reports: None Immunologic History: Reports: None Oncologic (Cancer) History: Reports: None Dermatologic History: Reports: None - Infectious Disease History Infectious Disease History: Reports: Chicken Pox, Measles - Past Surgical History Head Surgeries/Procedures: Reports: None Other GI Surgeries/Procedures: 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 Exam - Exam Exam: See Below - Vital Signs Vital Signs: Last Vital Signs Temp 36.6 C 11/07/19 05:44 Pulse 78 11/07/19 06:16 Resp 16 11/07/19 06:16 BP 101/58 L 11/07/19 06:16 Pulse Ox 99 11/07/19 06:16 Weight: 56.245 kg - Exam General: Alert, Oriented, Mild Distress HEENT: Conjunctiva Clear, Mucosa Moist & [place], Posterior Pharynx Clear Neck: Trachea Midline Lungs: Clear to Auscultation, Normal Respiratory Effort, Other (mild clubbing of fingernails) Cardiovascular: Regular Rate, Regular Rhythm GI/Abdominal Exam: Other (Patient is a large epigastric hernia which is incarcerated and tender with manipulation. The abdomen is otherwise flat soft and benign.) - Patient Data Lab Results Last 24 hrs: Laboratory Results - last 24 hr 11/07/19 11/07/19 11/07/19 Range/Units 04:36 04:36 04:36 WBC 8.71 (4.0-11.0) K/uL RBC 4.71 (4.30-5.90) M/uL Hgb 14.9 (12.0-16.0) g/dL Hct 43.1 (36.0-46.0) % MCV 91.5 (80.0-98.0) fL MCH 31.6 (27.0-32.0) pg MCHC 34.6 (31.0-37.0) g/dL RDW Std Deviation 45.5 (28.0-62.0) fl RDW Coeff of Marcello 14 (11.0-15.0) % Plt Count 274 (150-400) K/uL MPV 9.70 (7.40-12.00) fL Neut % (Auto) 71.4 (48.0-80.0) % Lymph % (Auto) 20.8 (16.0-40.0) % [place] % (Auto) 5.9 (0.0-15.0) % Eos % (Auto) 1.7 (0.0-7.0) % Baso % (Auto) 0.2 (0.0-1.5) % Neut # (Auto) 6.2 H (1.4-5.7) K/uL Lymph # (Auto) 1.8 (0.6-2.4) K/uL [place] # (Auto) 0.5 (0.0-0.8) K/uL Eos # (Auto) 0.2 (0.0-0.7) K/uL Baso # (Auto) 0.0 (0.0-0.1) K/uL Nucleated RBC % 0.0 /100WBC Nucleated RBCs # 0 K/uL Lactate (0.20-2.00) mmol/L Sodium 138 (136-145) mmol/L Potassium 3.4 L (3.5-5.1) mmol/L Chloride 102 (98-107) mmol/L Carbon Dioxide 27.1 (21.0-32.0) mmol/L BUN 8 (7.0-18.0) mg/dL Creatinine 0.8 (0.6-1.0) mg/dL Est Cr Clr Drug Dosing 64.95 mL/min Estimated GFR (MDRD) > 60.0 ml/min Glucose 100 (74-106) mg/dL Calcium 9.0 (8.5-10.1) mg/dL Total Bilirubin 0.2 (0.2-1.0) mg/dL AST 25 (15-37) IU/L ALT 27 (14-63) IU/L Alkaline Phosphatase 65 (46-116) U/L Total Protein 7.1 (6.4-8.2) g/dL Albumin 3.7 (3.4-5.0) g/dL Globulin 3.4 (2.6-4.0) g/dL Albumin/Globulin Ratio 1.1 (0.9-1.6) Lipase 171 (73-393) U/L Urine Color YELLOW Urine Appearance CLEAR Urine pH 7.0 (5.0-8.0) Ur Specific Unity <= 1.005 (1.001-1.035) Urine Protein NEGATIVE (NEGATIVE) mg/dL Urine Glucose (UA) NEGATIVE (NEGATIVE) mg/dL Urine Ketones NEGATIVE (NEGATIVE) mg/dL Urine Occult Blood TRACE-INTACT H (NEGATIVE) Urine Nitrite POSITIVE H (NEGATIVE) Urine Bilirubin NEGATIVE (NEGATIVE) Urine Urobilinogen 0.2 (<2.0) EU/dL Ur Leukocyte Esterase MODERATE H (NEGATIVE) Urine RBC 2-3 (0-2/HPF) Urine WBC 8-10 (0-5/HPF) Ur Epithelial Cells OCCASIONAL (NONE-FEW) Urine Bacteria 1+ H (NEGATIVE) 11/07/19 Range/Units 04:36 WBC (4.0-11.0) K/uL RBC (4.30-5.90) M/uL Hgb (12.0-16.0) g/dL Hct (36.0-46.0) % MCV (80.0-98.0) fL MCH (27.0-32.0) pg MCHC (31.0-37.0) g/dL RDW Std Deviation (28.0-62.0) fl RDW Coeff of Marcello (11.0-15.0) % Plt Count (150-400) K/uL MPV (7.40-12.00) fL Neut % (Auto) (48.0-80.0) % Lymph % (Auto) (16.0-40.0) % [place] % (Auto) (0.0-15.0) % Eos % (Auto) (0.0-7.0) % Baso % (Auto) (0.0-1.5) % Neut # (Auto) (1.4-5.7) K/uL Lymph # (Auto) (0.6-2.4) K/uL [place] # (Auto) (0.0-0.8) K/uL Eos # (Auto) (0.0-0.7) K/uL Baso # (Auto) (0.0-0.1) K/uL Nucleated RBC % /100WBC Nucleated RBCs # K/uL Lactate 1.0 (0.20-2.00) mmol/L Sodium (136-145) mmol/L Potassium (3.5-5.1) mmol/L Chloride (98-107) mmol/L Carbon Dioxide (21.0-32.0) mmol/L BUN (7.0-18.0) mg/dL Creatinine (0.6-1.0) mg/dL Est Cr Clr Drug Dosing mL/min Estimated GFR (MDRD) ml/min Glucose (74-106) mg/dL Calcium (8.5-10.1) mg/dL Total Bilirubin (0.2-1.0) mg/dL AST (15-37) IU/L ALT (14-63) IU/L Alkaline Phosphatase (46-116) U/L Total Protein (6.4-8.2) g/dL Albumin (3.4-5.0) g/dL Globulin (2.6-4.0) g/dL Albumin/Globulin Ratio (0.9-1.6) Lipase (73-393) U/L Urine Color Urine Appearance Urine pH (5.0-8.0) Ur Specific Unity (1.001-1.035) Urine Protein (NEGATIVE) mg/dL Urine Glucose (UA) (NEGATIVE) mg/dL Urine Ketones (NEGATIVE) mg/dL Urine Occult Blood (NEGATIVE) Urine Nitrite (NEGATIVE) Urine Bilirubin (NEGATIVE) Urine Urobilinogen (<2.0) EU/dL Ur Leukocyte Esterase (NEGATIVE) Urine RBC (0-2/HPF) Urine WBC (0-5/HPF) Ur Epithelial Cells (NONE-FEW) Urine Bacteria (NEGATIVE) Result Diagrams: 11/07/19 04:36 11/07/19 04:36 Sepsis Event Note - Evaluation Sepsis Screening Result: No Definite Risk - Focused Exam Vital Signs: Vital Signs Temp Pulse Resp BP Pulse Ox 11/07/19 06:16 78 16 101/58 L 99 11/07/19 05:44 36.6 C 87 14 145/79 H 98 11/07/19 04:21 37.2 C 82 18 147/102 H 99 Date Exam was Performed: 11/07/19 Time Exam was Performed: 10:27 Consult PN Assessment/Plan Procedures: Procedures ASSAY OF AMYLASE (09/28/18) ASSAY OF CK (CPK) (09/28/18) ASSAY OF LIPASE (09/28/18) ASSAY OF TROPONIN QUANT (09/28/18) CHEST X-RAY 1 VIEW FRONTAL (02/05/16) CHEST X-RAY 2VW FRONTAL&LATL (08/22/16) COMP SCREEN MAMMOGRAM ADD-ON (05/24/16) COMPLETE CBC W/AUTO DIFF WBC (09/28/18) COMPREHEN METABOLIC PANEL (09/28/18) CREATINE MB FRACTION (09/28/18) ELECTROCARDIOGRAM TRACING (09/28/18) EMERGENCY DEPT VISIT (07/09/19) EMERGENCY DEPT VISIT (09/28/18) EMERGENCY DEPT VISIT (03/27/18) EMERGENCY DEPT VISIT (08/22/16) HT MUSCLE IMAGE SPECT MULT (02/23/16) HYDRATE IV INFUSION ADD-ON (03/27/18) HYDRATION IV INFUSION INIT (06/18/18) PROTHROMBIN TIME (06/18/18) ROUTINE VENIPUNCTURE (09/28/18) THER/PROPH/DIAG INJ IV PUSH (03/27/18) URINALYSIS AUTO W/SCOPE (09/28/18) URINE TEST (06/18/18) X-RAY EXAM CHEST 1 VIEW (09/28/18) X-RAY EXAM KNEE 4 OR MORE (03/25/15) X-RAY EXAM OF FOREARM (07/09/19) (1) Ventral hernia with obstruction SNOMED Code(s): 489103362 Code(s): K43.6 - OTHER AND UNSP VENTRAL HERNIA WITH OBSTRUCTION, W/O GANGRENE Problem List Initiated/Reviewed/Updated: Yes Plan: The patient has a incarcerated and possibly strangulated loop of colon in her ventral hernia. She is a smoker and appears to have some signs of possible COPD. I discussed her case with my partner Dr. Derrell Subramanian. After discussion it was felt she should be transferred to a larger hospital with more resources in case this bowel is strangulated and she would require a colon resection with ostomy. The patient stated that she would also prefer to be cared for at [facility]. I called the [facility] and spoke with Dr. Juarez and Dr. Ambrocio. They accepted the patient, however the patient decided to leave AM after I left the ER. I spoke with the ER nurse who documented why the patient left AMA and what she was told.
== END 2019-11-07 08:35 | disposition critical access hospital (66) ==
LOC: MW.ED 04:17
DX: K46.0 Unspecified abdominal hernia with obstruction, without gangrene (principal); I10 Essential (primary) hypertension; F17.210 Nicotine dependence, cigarettes, uncomplicated; Z88.5 Allergy status to narcotic agent; Z88.8 Allergy status to other drugs, medicaments and biological substances; Z88.2 Allergy status to sulfonamides; Z79.899 Other long term (current) drug therapy
CPT/HCPCS: 36415; 74177; 80053; 81001; 83605; 83690; 85025; 87086; 87088; 87186; 96361; 96365; 96375; 99284; J0690; J1170; J2405; J7030; Q9967

== ENCOUNTER 2020-09-23 21:37 | Emergency (ER) | payer BC, OTHER ==
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
[2020-09-24] MEDS ORDERED: Ketorolac 30 MG/ML SDV IM ONE (00:28)
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
[2020-09-24 02:38] VITALS: BP 112/68; PULSE 76
== END 2020-09-24 01:50 | disposition home or self-care (01) ==
LOC: MW.ED 21:37
DX: S46.911A Strain of unspecified muscle, fascia and tendon at shoulder and upper arm level, right arm, initial encounter (principal); S16.1XXA Strain of muscle, fascia and tendon at neck level, initial encounter; S20.211A Contusion of right front wall of thorax, initial encounter; I10 Essential (primary) hypertension; F17.210 Nicotine dependence, cigarettes, uncomplicated; Z88.5 Allergy status to narcotic agent; Z88.6 Allergy status to analgesic agent; Z88.2 Allergy status to sulfonamides; Z79.899 Other long term (current) drug therapy; Z88.8 Allergy status to other drugs, medicaments and biological substances; Y04.0XXA Assault by unarmed brawl or fight, initial encounter
CPT/HCPCS: 71101; 72040; 73030; 96372; 99284; J1885; 99283

== ENCOUNTER 2020-11-05 02:50 | Emergency (ER) | payer BC, OTHER ==
[2020-11-05] MEDS ORDERED: Sodium Chloride 0.9% 10 ML Syringe FLUSH PRN (03:15)
[2020-11-05] MEDS ORDERED: Sodium Chloride 0.9% 2.5 ML Syringe FLUSH PRN (03:15)
[2020-11-05] MEDS ORDERED: Ondansetron 4 MG/2 ML SDV IVPUSH ONE (03:15)
[2020-11-05] MEDS ORDERED: Sodium Chloride 0.9% 1,000 ML IV ONE (03:15)
[2020-11-05] MEDS ORDERED: Ketorolac 30 MG/ML SDV IVPUSH ONE (03:34)
[2020-11-05 03:53] LABS: CARBON DIOXIDE,CO2 24.6 mmol/L (21.0-32.0); POTASSIUM,K 3.5 mmol/L (3.5-5.1)
[2020-11-05] MEDS ORDERED: Iopamidol 755 MG/ML 500 ML Multipack Bottle IVPUSH STA (04:25)
--- NOTE | 2020-11-05 04:43 | CT ---
INDICATION: History lymphocytic colitis, abdominal pain TECHNIQUE: CT Abdomen and pelvis with i.v. contrast. Coronal and sagittal reformats were obtained. CONTRAST: 100 mL Isovue 370 COMPARISON: 11/07/2019 FINDINGS: Lower chest: Mild pleural parenchymal scarring is seen in the left lateral lung base. Liver: Unremarkable. Spleen: Unremarkable. Pancreas: Unremarkable. Gallbladder: A punctate gallstone is noted on image 59. Kidney: Excretion of contrast into the renal collecting systems noted, which limits evaluation for the presence of stones. Adrenal: Unremarkable. Bowel: Mild fluid distention of the stomach is present. Mild, stable wall thickening of the gastric antrum is present. The appendix is not identified. The midline ventral hernia seen on prior examination has been reduced and is no longer present. Vascular: Unremarkable. Lymph: Unremarkable. Peritoneum: Unremarkable. No pneumoperitoneum is seen. No significant ascites is noted. Pelvis: There is an ovoid mildly hyperdense structure in the right posterior pelvis measuring 4.4 x 3.3 cm. Soft tissue: Unremarkable. Bone: Unremarkable for age. IMPRESSIONS: 1. Mild, stable wall thickening of the gastric antrum is present. This may be due to gastritis or peptic ulcer disease and confirmation with barium GI series or endoscopy is recommended. 2. There is an ovoid mildly hyperdense structure in the right posterior pelvis measuring 4.4 x 3.3 cm. This may represent an enlarged right ovary and can be better assessed by pelvic ultrasound if clinically indicated. Dictated by Bhavin Last MD @ 11/05/2020 4:41:07 AM Please note that all CT scans at this facility use dose modulation, iterative reconstruction, and/or weight-based dosing when appropriate to reduce radiation dose to as low as reasonably achievable. Dictated by: Bhavin Last MD @ 11/05/2020 04:41:13 (Electronically Signed)
--- NOTE | 2020-11-05 04:44 | EDM.PDOC ---
ED HPI GENERAL MEDICAL PROBLEM - General Chief Complaint: Gastrointestinal Problem Stated Complaint: FOOD POISONING Time Seen by Provider: 11/05/20 03:14 - History of Present Illness INITIAL COMMENTS - FREE TEXT/NARRATIVE: HISTORY AND PHYSICAL: History of present illness: This a 59-year-old female with a history significant for lymphocytic colitis who presents ER today complaining of abdominal pain started at 7 PM as well as diarrhea with 10 loose bowel movements since 7 PM this evening. Patient reports that symptoms started after eating a "nasty donut "from a gas station. She reports after eating the donut she started having abdominal cramping and shortly thereafter was having severe amounts of diarrhea. Patient denies any melena or bright red blood per rectum. Patient has any recent fevers, shakes, chills. Patient reports nausea with no vomiting. Patient denies any chest pressure or chest pain. Patient reports she has lower abdominal discomfort which is atypical of her biliary colic that she has had in the past. Review of systems: As per history of present illness and below otherwise all systems reviewed and negative. Past medical history: As per history of present illness and as reviewed below otherwise noncontributory. Surgical history: As per history of present illness and as reviewed below otherwise noncontributory. Social history: No reported history of drug or alcohol abuse. Family history: As per history of present illness and as reviewed below otherwise noncontributory. Physical exam: Constitutional: Patient is oriented to person, place, and time. Appears well- developed and well-nourished. No distress. HEENT: Moist mucous membranes Head: Normocephalic and atraumatic Eyes: Right eye exhibits no discharge. Left eye exhibits no discharge. No scleral icterus Neck: Normal range of motion. No tracheal deviation present. Cardiovascular: Normal rate and regular rhythm. Pulmonary: Effort normal, no respiratory distress. Abd: Soft, nondistended, no rebound/guarding, no psoas or obturator signs, no tenderness at Mcberney's point, no Nicholas's sign. Pt does not present with an exam that would be consistent with an acute surgical abdomen at this time, mild tenderness palpation to her lower abdomen greatest in the suprapubic region. Musculoskeletal: Normal range of motion Neurologic: Alert and oriented to person, place and time. Skin: [place], warm and dry. Psychiatric: Normal mood and affect. Behavior is normal. Judgment and thought content normal. Nursing note and vital signs have been reviewed This patient was seen and evaluated during the 2019 SARS-CoV-2 novel coronavirus pandemic period. Community viral transmission is ongoing at time of this enco unter and the emergency department is operating under pandemic response procedures. Assessment and plan: This is a 59-year-old female with history significant for lymphocytic colitis who presents ER today secondary to abdominal pain and diarrhea that started at 7 PM this evening after eating a donut from a gas station. Patient reports she is had 10 loose watery bowel movements however during her evaluation ED she has not had any further diarrhea. Patient will have labs including a CBC, CMP, lipase, urinalysis as well as CT scan of her abdomen pelvis. Patient is given Zofran and IV fluids and adequate analgesia in ED and appears to be comfortable at this time. 453: Discussed with patient need for ultrasound of her pelvis to rule out ovarian torsion. Patient is declining the ultrasound and is requesting to be discharged home. Patient reports that she feels better after the IV fluids and the medicine that was given. Patient is also declining the coronavirus test and reports that she is had 3 - ones thus far and has been extremely careful and does not think that she has coronavirus. Both the coronavirus test and the ultrasound of her pelvis have been canceled the patient will be discharged home with follow-up instructions with her PCP. Reassessment at the time of disposition demonstrates that the patient is in no acute distress. The patient has remained stable throughout the entire ED visit and is without objective evidence for acute process requiring urgent intervention or hospitalization. The patient is stable for discharge, counseling is provided as documented above, discussed symptomatic treatment and specific conditions for return. I have spoken with the patient/caregiver and discussed todays findings, in addition to providing specific details for the plan of care. Questions are answered and there is agreement with the plan. Definitive disposition and diagnosis as appropriate pending reevaluation and review of above. Abdominal Pain Score (Numeric/FACES): 8 - Related Data Allergies Allergy/AdvReac Type Severity Reaction Status Date / Time codeine Allergy Other Verified 11/05/20 02:56 lidocaine Allergy Other Verified 11/05/20 02:56 Sulfa (Sulfonamide Allergy Hives Verified 11/05/20 02:56 Antibiotics) venlafaxine HCl Allergy Other Verified 11/05/20 02:56 [From Effexor] Home Meds: Home Meds Hyoscyamine [Levsin] 0.125 mg PO Q4HR PRN 04/05/15 [History] Lisinopril 5 mg PO DAILY 04/05/15 [History] Potassium Gluconate 50 mg PO DAILY 02/05/16 [History] Nitroglycerin 0.4 mg SL Q5M PRN #30 tab.subl 09/28/18 [Rx] Dicyclomine [Bentyl] 2 tab PO QID PRN 09/23/20 [History] Cyclobenzaprine HCl 10 mg PO BEDTIME PRN 11/05/20 [History] Ondansetron [Zofran ODT] 4 mg PO Q6H PRN #12 tab.dis 11/05/20 [Rx] hydrOXYzine HCL [hydrOXYzine] 25 mg PO BEDTIME PRN 11/05/20 [History] Past Medical History HEENT History: Reports: None Cardiovascular History: Reports: Hypertension Respiratory History: Reports: None Gastrointestinal History: Reports: Other (See Below) Other Gastrointestinal History: ventral hernia. chronic diarrhea Genitourinary History: Reports: None [employer]ISH[employer]ER History: Reports: None Other [employer] T[employer]ER History: currently on menses, c section Musculoskeletal History: Reports: Other (See Below) Other Musculoskeletal History: left knee issues, maniscus tears, needs surgery Neurological History: Reports: None Psychiatric History: Reports: None Endocrine/Metabolic History: Reports: Other (See Below) Other Endocrine/Metabolic History: hypoglycemia Hematologic History: Reports: None Immunologic History: Reports: None Oncologic (Cancer) History: Reports: None Dermatologic History: Reports: None - Infectious Disease History Infectious Disease History: Reports: Chicken Pox, Measles, Mumps - Past Surgical History Head Surgeries/Procedures: Reports: None GI Surgical History: Reports: Hernia, Abdominal Other GI Surgeries/Procedures: 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 gallbladder problems Social & Family History - Family History Family Medical History: No Pertinent Family History - Caffeine Use Caffeine Use: Reports: Coffee - Recreational Drug Use Recreational Drug Use: No ED ROS GENERAL - Review of Systems Review Of Systems: See Below ED EXAM, GENERAL - Physical Exam Exam: See Below Course - Vital Signs Last Recorded V/S: Last Vital Signs Temp 98.2 F 11/05/20 02:57 Pulse 113 H 11/05/20 02:57 Resp 18 11/05/20 02:57 BP 150/82 H 11/05/20 02:57 Pulse Ox 95 11/05/20 02:57 - Orders/Labs/Meds Orders: Active Orders 24 hr Category Date Time Status Pelvis Non OB Ltd [US] Stat Exams 11/05/20 04:47 Stop Req COVID-19/FLU A+B [MOLEC] Stat Lab 11/05/20 03:26 Stop Req UA W/ROSANNE RFLX IF INDICATED [URIN] Stat Lab 11/05/20 03:16 Ordered Sodium Chloride 0.9% [Saline Flush] Med 11/05/20 03:15 Active 10 ml FLUSH ASDIRECTED PRN Sodium Chloride 0.9% [Saline Flush] Med 11/05/20 03:15 Active 2.5 ml FLUSH ASDIRECTED PRN Saline Lock Insert [OM.PC] Stat Oth 11/05/20 03:15 Ordered Medication Orders Sodium Chloride (Saline Flush) 10 ml FLUSH ASDIRECTED PRN PRN Reason: Keep Vein Open Last Admin: 11/05/20 03:31 Dose: 10 ml Documented by: MCKAYLA Sodium Chloride (Saline Flush) 2.5 ml FLUSH ASDIRECTED PRN PRN Reason: Keep Vein Open Last Admin: 11/05/20 03:31 Dose: 2.5 ml Documented by: MCKAYLA Labs: Laboratory Tests 11/05/20 11/05/20 Range/Units 03:22 03:22 WBC 9.43 (4.0-11.0) K/uL RBC 5.31 (4.30-5.90) M/uL Hgb 16.6 H (12.0-16.0) g/dL Hct 49.7 H (36.0-46.0) % MCV 93.6 (80.0-98.0) fL MCH 31.3 (27.0-32.0) pg MCHC 33.4 (31.0-37.0) g/dL RDW Std Deviation 44.7 (28.0-62.0) fl RDW Coeff of Marcello 13 (11.0-15.0) % Plt Count 286 (150-400) K/uL MPV 9.90 (7.40-12.00) fL Neut % (Auto) 70.2 (48.0-80.0) % Lymph % (Auto) 26.0 (16.0-40.0) % [place] % (Auto) 2.5 (0.0-15.0) % Eos % (Auto) 1.2 (0.0-7.0) % Baso % (Auto) 0.1 (0.0-1.5) % Neut # (Auto) 6.6 H (1.4-5.7) K/uL Lymph # (Auto) 2.5 H (0.6-2.4) K/uL [place] # (Auto) 0.2 (0.0-0.8) K/uL Eos # (Auto) 0.1 (0.0-0.7) K/uL Baso # (Auto) 0.0 (0.0-0.1) K/uL Nucleated RBC % 0.0 /100WBC Nucleated RBCs # 0 K/uL Sodium 140 (136-145) mmol/L Potassium 3.5 (3.5-5.1) mmol/L Chloride 102 (98-107) mmol/L Carbon Dioxide 24.6 (21.0-32.0) mmol/L BUN 14 (7.0-18.0) mg/dL Creatinine 1.1 H (0.6-1.0) mg/dL Est Cr Clr Drug Dosing 40.53 mL/min Estimated GFR (MDRD) 51.2 ml/min Glucose 112 H (74-106) mg/dL Calcium 10.1 (8.5-10.1) mg/dL Total Bilirubin 0.3 (0.2-1.0) mg/dL AST 24 (15-37) IU/L ALT 23 (14-63) IU/L Alkaline Phosphatase 112 (46-116) U/L Total Protein 8.0 (6.4-8.2) g/dL Albumin 4.1 (3.4-5.0) g/dL Globulin 3.9 (2.6-4.0) g/dL Albumin/Globulin Ratio 1.1 (0.9-1.6) Lipase 124 (73-393) U/L Meds: Medications Generic Name Dose Route Start Last Admin Trade Name Freq PRN Reason Stop Dose Admin Sodium Chloride 10 ml 11/05/20 03:15 11/05/20 03:31 Saline Flush FLUSH 10 ml ASDIRECTED PRN Administration Keep Vein Open Sodium Chloride 2.5 ml 11/05/20 03:15 11/05/20 03:31 Saline Flush FLUSH 2.5 ml ASDIRECTED PRN Administration Keep Vein Open Discontinued Medications Generic Name Dose Route Start Last Admin Trade Name Freq PRN Reason Stop Dose Admin Sodium Chloride 1,000 mls @ 999 mls/hr 11/05/20 03:15 11/05/20 03:31 Normal Saline IV 11/05/20 04:15 999 mls/hr .Bolus ONE Administration Iopamidol 100 ml 11/05/20 04:25 11/05/20 04:25 Isovue Multipack-370 (76%) IVPUSH 11/05/20 04:26 100 ml ONETIME STA Administration Ketorolac Tromethamine 15 mg 11/05/20 03:34 11/05/20 03:41 Toradol IVPUSH 11/05/20 03:35 15 mg ONETIME ONE Administration Ondansetron HCl 4 mg 11/05/20 03:15 11/05/20 03:31 Zofran IVPUSH 11/05/20 03:16 4 mg ONETIME ONE Administration Departure - Departure Time of Disposition: 04:54 Disposition: Home, Self-Care 01 Condition: Good Clinical Impression: Abdominal pain, Diarrhea, Dehydration - Discharge Information Instructions: Dehydration, Adult, [id number], Nausea and Vomiting, Adult, Diarrhea, Adult [facility] - Forms: ED Department Discharge Additional Instructions: You were seen and evaluated in ER today secondary to your diarrhea. It is possible that the diarrhea is secondary to food poisoning from the donut that he ate however it is also possible that might be secondary to your lymphocytic colitis or from a viral infection. All these will require that you drink plenty of fluids and maintain a bland diet for the next 1 to 2 days. You will be given a prescription for Zofran to assist with hydration. Please make an appointment to see your family doctor in 1 to 2 days to be reevaluated. The following information is given to patients seen in the emergency department who are being discharged to home. This information is to outline your options for follow-up care. We provide all patients seen in our emergency department with a follow-up referral. The need for follow-up, as well as the timing and circumstances, are variable depending upon the specifics of your emergency department visit. If you don't have a primary care physician on staff, we will provide you with a referral. We always advise you to contact your personal physician following an e mergency department visit to inform them of the circumstance of the visit and for follow-up with them and/or the need for any referrals to a consulting specialist. The emergency department will also refer you to a specialist when appropriate. This referral assures that you have the opportunity for follow-up care with a specialist. All of these measure are taken in an effort to provide you with op timal care, which includes your follow-up. Under all circumstances we always encourage you to contact your private physician who remains a resource for coordinating your care. When calling for follow-up care, please make the office aware that this follow-up is from your recent emergency room visit. If for any reason you are refused follow-up, please contact the [facility] Emergency Department at and asked to speak to the emergency department charge nurse. [facility] [address] [place] [id number] [facility] [address] [place] [id number] Sepsis Event Note (ED) - Evaluation Sepsis Screening Result: No Definite Risk - Focused Exam Vital Signs: Vital Signs Temp Pulse Resp BP Pulse Ox 11/05/20 02:57 98.2 F 113 H 18 150/82 H 95 - My Orders Last 24 Hours: My Active Orders 11/05/20 03:15 Sodium Chloride 0.9% [Saline Flush] 10 ml FLUSH ASDIRECTED PRN Sodium Chloride 0.9% [Saline Flush] 2.5 ml FLUSH ASDIRECTED PRN Saline Lock Insert [OM.PC] Stat 11/05/20 03:16 UA W/ROSANNE RFLX IF INDICATED [URIN] Stat 11/05/20 03:26 COVID-19/FLU A+B [MOLEC] Stat 11/05/20 04:47 Pelvis Non OB Ltd [US] Stat - Assessment/Plan Last 24 Hours: My Active Orders 11/05/20 03:15 Sodium Chloride 0.9% [Saline Flush] 10 ml FLUSH ASDIRECTED PRN Sodium Chloride 0.9% [Saline Flush] 2.5 ml FLUSH ASDIRECTED PRN Saline Lock Insert [OM.PC] Stat 11/05/20 03:16 UA W/ROSANNE RFLX IF INDICATED [URIN] Stat 11/05/20 03:26 COVID-19/FLU A+B [MOLEC] Stat 11/05/20 04:47 Pelvis Non OB Ltd [US] Stat
[2020-11-05 05:36] VITALS: BP 128/83; PULSE 87
== END 2020-11-05 05:12 | disposition home or self-care (01) ==
LOC: MW.ED 02:50
DX: R10.30 Lower abdominal pain, unspecified (principal); E86.0 Dehydration; R19.7 Diarrhea, unspecified; I10 Essential (primary) hypertension; Z88.5 Allergy status to narcotic agent; Z88.2 Allergy status to sulfonamides; Z88.8 Allergy status to other drugs, medicaments and biological substances; Z88.4 Allergy status to anesthetic agent
CPT/HCPCS: 36415; 74177; 80053; 83690; 85025; 96374; 96375; 99284; J1885; J2405; J7030; Q9967; 99283

== ENCOUNTER 2024-08-06 12:13 | Emergency (ER) | payer BC, OTHER ==
[2024-08-06] MEDS: Sodium Chloride 0.9% 2.5 ML Syringe FLUSH PRN (12:55)
[2024-08-06] MEDS: Sodium Chloride 0.9% 10 ML Syringe FLUSH PRN (12:55)
[2024-08-06] MEDS: Aspirin 81 MG Tab.Chew PO ONE (12:56)
[2024-08-06 12:58] LABS: BASOPHILS ABSOLUTE AUTO 0.04 K/uL (0.00-0.20); BASOPHILS PERCENT AUTO 0.6 % (0.0-1.0); EOSINOPHILS ABSOLUTE AUTO 0.08 K/uL (0.00-0.45); EOSINOPHILS PERCENT AUTO 1.2 % (0.0-6.0); HEMOGLOBIN 13.8 g/dL (12.0-16.0); IMMATURE GRAN ABSOLUTE AUTO 0.01 K/uL (0.00-0.05); IMMATURE GRAN PERCENT AUTO 0.1 % (0.0-0.4); LYMPHOCYTES ABSOLUTE AUTO 1.99 K/uL (1.00-4.80); MEAN CORPUSCULAR HEMOGLOBIN 29.7 pg (28.0-32.0); MEAN CORPUSCULAR HGB CONC 32.9 g/dL (32.0-36.0); MEAN CORPUSCULAR VOLUME 90.3 fL (83.0-99.0); MEAN PLATELET VOLUME 9.3 fL (9.4-12.3); MONOCYTES ABSOLUTE AUTO 0.32 K/uL (0.00-0.80); MONOCYTES PERCENT AUTO 4.7 % (0.0-8.0); NEUTROPHILS ABSOLUTE AUTO 4.42 K/uL (1.80-7.70); NEUTROPHILS PERCENT AUTO 64.4 % (41.0-71.0); PLATELET COUNT,PLT 296 K/uL (150-400); RED BLOOD CELL COUNT 4.65 M/uL (4.10-5.30); WHITE BLOOD CELL COUNT,WBC 6.86 K/uL (3.9-11.3)
[2024-08-06 13:35] LABS: CORONAVIRUS COVID-19 NAA NEGATIVE (NEGATIVE); INFLUENZA A NAA NEGATIVE (NEGATIVE); INFLUENZA B NAA NEGATIVE (NEGATIVE)
[2024-08-06 13:46] LABS: A/G RATIO 0.9 (0.9-1.6); ALBUMIN 3.7 g/dL (3.4-5.0); BILIRUBIN TOTAL 0.2 mg/dL (0.2-1.0); CALCIUM 9.4 mg/dL (8.5-10.1); CARBON DIOXIDE,CO2 26.8 mmol/L (21.0-32.0); CREATININE 0.8 mg/dL (0.6-1.0); EST CRCL DRUG DOSING (CG) 66.45 mL/min; POTASSIUM,K 3.8 mmol/L (3.5-5.1); PROTEIN TOTAL,TP 7.7 g/dL (6.4-8.2); TSH ULTRASENSITIVE 1.34 uIU/mL (0.36-3.74)
[2024-08-06] MEDS: Iopamidol 755 MG/ML 500 ML Multipack Bottle IVPUSH STA (14:22)
[2024-08-06 16:41] VITALS: BP 165/85; PULSE 77
== END 2024-08-06 16:39 | disposition home or self-care (01) ==
LOC: MW.ED 12:13
DX: R07.89 Other chest pain (principal); I10 Essential (primary) hypertension; Z79.899 Other long term (current) drug therapy; Z88.2 Allergy status to sulfonamides; Z88.8 Allergy status to other drugs, medicaments and biological substances; Z88.5 Allergy status to narcotic agent; Z75.8 Other problems related to medical facilities and other health care
CPT/HCPCS: 0240U; 36415; 71045; 71275; 80053; 84443; 84484; 85025; 85379; 93005; 99285; J3490; Q9967; 93010

== ENCOUNTER 2025-01-22 03:55 | Emergency (ER) | payer BC, OTHER ==
[2025-01-22 04:08] LABS: BASOPHILS ABSOLUTE AUTO 0.04 K/uL (0.00-0.20); BASOPHILS PERCENT AUTO 0.6 % (0.0-1.0); EOSINOPHILS ABSOLUTE AUTO 0.22 K/uL (0.00-0.45); EOSINOPHILS PERCENT AUTO 3.2 % (0.0-6.0); HEMATOCRIT 40.8 % (37.0-47.0); HEMOGLOBIN 13.8 g/dL (12.0-16.0); IMMATURE GRAN ABSOLUTE AUTO 0.01 K/uL (0.00-0.05); IMMATURE GRAN PERCENT AUTO 0.1 % (0.0-0.4); LYMPHOCYTES ABSOLUTE AUTO 2.67 K/uL (1.00-4.80); LYMPHOCYTES PERCENT AUTO 38.8 % (24.0-44.0); MEAN CORPUSCULAR HEMOGLOBIN 30.2 pg (28.0-32.0); MEAN CORPUSCULAR HGB CONC 33.8 g/dL (32.0-36.0); MEAN CORPUSCULAR VOLUME 89.3 fL (83.0-99.0); MEAN PLATELET VOLUME 9.4 fL (9.4-12.3); MONOCYTES PERCENT AUTO 7.3 % (0.0-8.0); NEUTROPHILS ABSOLUTE AUTO 3.45 K/uL (1.80-7.70); PLATELET COUNT,PLT 237 K/uL (150-400); RED BLOOD CELL COUNT 4.57 M/uL (4.10-5.30); WHITE BLOOD CELL COUNT,WBC 6.89 K/uL (3.9-11.3)
[2025-01-22 04:16] LABS: INR 0.93 (0.86-1.11); PTT,PARTIAL THROMBOPLSTIN TIME 25.9 SEC (23.9-30.7)
[2025-01-22 04:30] LABS: A/G RATIO 1.1 (0.9-1.6); ALBUMIN 3.6 g/dL (3.4-5.0); BILIRUBIN TOTAL 0.3 mg/dL (0.2-1.0); CALCIUM 8.7 mg/dL (8.5-10.1); EST CRCL DRUG DOSING (CG) 41.9 mL/min; POTASSIUM,K 3.2 mmol/L (3.5-5.1)
[2025-01-22] MEDS: Ketorolac 30 MG/ML SDV IM ONE (05:18)
[2025-01-22] MEDS: Morphine 4 MG/ML Syringe IVPUSH ONE (05:21)
[2025-01-22] MEDS: Ketorolac 30 MG/ML SDV IVPUSH ONE (05:22)
[2025-01-22] MEDS: Iopamidol 755 MG/ML 500 ML Multipack Bottle IVPUSH STA (07:06)
[2025-01-22 08:00] VITALS: BP 148/92; PULSE 76
[2025-01-22] MEDS: Dexamethasone 4 MG Tab PO ONE (08:04)
[2025-01-22] MEDS: Dexamethasone 4 MG/ML SDV IVPUSH ONE (08:05)
== END 2025-01-22 08:07 | disposition home or self-care (01) ==
LOC: MW.ED 03:55
DX: R07.9 Chest pain, unspecified (principal); R09.1 Pleurisy; I10 Essential (primary) hypertension; Z88.5 Allergy status to narcotic agent; Z88.2 Allergy status to sulfonamides; Z88.8 Allergy status to other drugs, medicaments and biological substances; Z79.899 Other long term (current) drug therapy
CPT/HCPCS: 36415; 71046; 71275; 80053; 82550; 84484; 85025; 85610; 85730; 93005; 96374; 96375; 99285; J1885; J2270; J8540; Q9967; 93010; 99284